=== PATIENT | female | born 1990 ===

== ENCOUNTER 2020-09-02 09:45 | Inpatient (IN) | payer OTHER ==
[~2020-09-02] VITALS: Ht 170.2 cm; Wt 94.8 kg
[2020-09-07] MEDS ORDERED: IRON325 MG PO (14:09)
[2020-09-07] MEDS ORDERED: PRENATAL TABLE1 EAC1 PO (14:09)
== END 2020-09-10 14:12 | disposition home or self-care (01) | DRG 788 ==
LOC: SURG-SUITE 09-07 12:05 → O/R 09-07 12:05 → SURG-SUITE 09-07 19:59 → SURH 09-09 09:45 → SURG-SUITE 09-10 14:12
PROVIDERS: ADMIT Obstetrics & Gynecology Maternal & Fetal Medicine; ATTEND Obstetrics & Gynecology Maternal & Fetal Medicine
PROC: 4A1HXFZ Monitoring of Products of Conception, Cardiac Rhythm, External Approach (ICD-10-PCS; 2020-09-07)
PROC: 10D00Z1 Extraction of Products of Conception, Low, Open Approach (ICD-10-PCS; principal; 2020-09-07 13:30)
DX: O34.211 Maternal care for low transverse scar from previous cesarean delivery (principal); Z3A.39 39 weeks gestation of pregnancy; Z37.0 Single live birth